=== PATIENT | female | born 1945 | race Caucasian/White ===

== ENCOUNTER 2018-05-31 07:13 | Inpatient (IN) ==
[2018-05-31] MEDS ORDERED: *HR* Succinylcholine 200 MG/10 ML VIAL IVP ONE (07:26)
[2018-05-31] MEDS ORDERED: *HR* Rocuronium Bromide 50 MG/5 ML VIAL ONE (07:26)
[2018-05-31] MEDS ORDERED: Dexamethasone 4 MG/ML VIAL ONE (07:26)
[2018-05-31] MEDS ORDERED: *HR* Midazolam HCl 2 MG/2 ML VIAL ONE (07:26)
[2018-05-31] MEDS ORDERED: Neostigmine Methylsulfate 3 MG/3 ML SYRINGE ONE (07:26)
[2018-05-31] MEDS ORDERED: Ondansetron 4 MG/2 ML VIAL ONE (07:26)
[2018-05-31] MEDS ORDERED: Lidocaine -MPF 2% 2 ML VIAL ONE (07:26)
[2018-05-31] MEDS ORDERED: *HR* FentaNYL (PF) 100 MCG/2 ML VIAL ONE (07:26)
[2018-05-31] MEDS ORDERED: *HR* Propofol 200 MG/20 ML VIAL IVP ONE (07:27)
--- NOTE | 2018-05-31 07:28 | Anesthesia Evaluation PreOp ---
Date of Encounter: 05/31/18 Time of Encounter: 08:21 - Past History Planned Operation: Robotic Right Lower Lobectomy Cardiac History: CA (2016), HTN, Hyperlipidemia, Cardiac Stent (stent x 2, on plavix---last taken 05/31/2018) Pulmonary History: Former smoker (quit 1992), COPD, DARIANA Dx (uses CPAP), Other (H/O lung CA S/P right middle lobectomy) DIRECTOR OF CONSULTING SERVICES History: CVA (diagnosed by scan) Other Medical History: Denies Any Significant HX Anesthesia History: No Prior Anesthetic Complications, Past Anesthesia Alcohol Use: rarely Drug use: none Medications and Allergies Allergy/AdvReac Type Severity Reaction Status Date / Time tetanus immune globulin Allergy See Verified 05/31/18 08:07 Comments Amoxicillin AdvReac Rash Verified 05/31/18 08:07 clavulanic acid AdvReac Vomiting Verified 05/31/18 08:07 [From Augmentin] codeine AdvReac Itching Verified 05/31/18 08:07 Sulfa (Sulfonamide AdvReac Rash Verified 05/31/18 08:07 Antibiotics) - Meds/Allergy Pre-op Review Medications Reviewed: Yes Allergies Reviewed: Yes Beta Blockers on Current Med List: Yes If Beta Blockers taken, Date/Time (Last Dose taken): 05/31/2018 at 0500 Anesthesia Results - Labs Laboratory Tests 05/15/18 05/15/18 08:03 08:03 WBC 6.4 Hgb 13.6 Hct 40.5 Plt Count 222 Sodium 129 L Potassium 4.4 BUN 16 Creatinine 0.86 - Imaging EKG: report reviewed (05/15/2018 SINUS BRADYCARDIA) Anesthesia Exam O2 Sat Height 1.6 m Height 1.6 m Weight 67.585 kg Weight 67.585 kg O2 Sat by Pulse Oximetry 98 Vital Signs Temp Pulse Resp BP Pulse Ox 98.4 F 65 18 128/65 98 05/31/18 07:56 05/31/18 07:56 05/31/18 07:56 05/31/18 07:56 05/31/18 07:56 Height: 5'3'' Weight: 149 lbs NPO (# of Hours): 8 Pain Scale: 0 Pain Scale Used: Numeric (1 - 10) - HEENT Pupil (Motor): EOMI Mallampati: II Teeth: Normal (loose lower front tooth) Oral Opening: Greater than 3 - DIRECTOR OF CONSULTING SERVICES LOC: Oriented DIRECTOR OF CONSULTING SERVICES Motor: Normal RUE, Normal LUE, Normal RLE, Normal LLE, Normal Face DIRECTOR OF CONSULTING SERVICES Sensory: Normal: RUE, LUE, Face, Deficit: RLE (neuropathy), LLE (neuropathy) - Cardiac Rhythm: Regular Murmur: None - Pulmonary Breath Sounds: bilateral Clear Respiratory Effort: Symmetrical Anesthesia Assess/Plan ASA Score: 3 Level of consciousness: Cooperative, Oriented, Tranquil Anesthetic Plan: General Monitoring Plan: Standard Monitors Recovery Plan: PACU
[2018-05-31] MEDS ORDERED: Lidocaine -MPF 4% 5 ML AMPUL ONE (07:33)
[2018-05-31] MEDS ORDERED: CeFAZolin Syr 2,000MG/20 ML 2,000 MG/20 ML SYRINGE IVPB ONE (08:08)
[2018-05-31] MEDS ORDERED: Ringers Solution, Lactated 1,000 ML IVC SCH (08:15)
--- NOTE | 2018-05-31 08:27 | History & Physical Report ---
Date of Encounter: 05/31/18 Time of Encounter: 08:26 24 Hour HP Update - Instructions Instructions: If the History and Physical is less than 30 days old and was completed prior to A.M. admission and or procedure and has NOT been updated on calendar day of procedure please complete this update prior to performing procedure. - Update Patient reports changes in Medical Condition: No Changes in examination, assessment, or condition: No Changes in Medication: No Preop tests/diagnostics Reviewed: Yes Pre-Op MRSA Screen: Negative Surgery Remains Indicated: Yes - Pre-Operative Checklist Preoperative Checklist Indicated: Yes Prophylactic Antibiotic Ordered: Yes Home Medications Include Beta Garima: No Beta Garima Taken Today (Day of Surgery): No Beta Garima Taken Yesterday (Day Prior to Surgery): No Is VTE Prophylaxis Indicated?: Yes
[2018-05-31] MEDS ORDERED: Ondansetron 4 MG/2 ML VIAL IVP ONE (08:39)
[2018-05-31] MEDS ORDERED: *HR* HYDROmorphone (PF) 1 MG/ML SYRINGE IVP PRN (08:39)
[2018-05-31] MEDS ORDERED: *HR* OxyCODONE Immed Rel 5 MG TABLET PO PRN (08:39)
[2018-05-31] MEDS ORDERED: EPHEDrine 50 MG/ML VIAL ONE (10:48)
[2018-05-31] MEDS ORDERED: *HR* PHENYLEPHRINE 1,000 MCG/10 ML SYRINGE IVP ONE (10:53)
[2018-05-31] MEDS ORDERED: 0.9 % Sodium Chloride 1,000 ML IVC SCH (12:00)
--- NOTE | 2018-05-31 12:11 | Operative Note ---
Date of procedure: 05/31/18 Pre-op diagnosis: right lower lobe lung cancer Post-op diagnosis: same Procedure: staging bronchoscopy, right robotic decortication, lower lobectomy, lymph node dissection Anesthesia: GETA Local Anesthetics: 0.5% Sensorcaine HCL SubQ (cc) Surgeon: Ryan Ayala Was there an accounts payable assistant present: No Estimated blood loss (cc): 25 Specimen: wedge upper lobe, node 7, lower lobe Condition: stable Disposition: PACU Procedure in Detail: The patient was brought to the operating room and placed on the operating table in the supine position. After undergoing general anesthesia with Dulce compressive devices on bilateral lower extremities and perioperative antibiotics on board staging bronchoscopy was performed on the patient for the first time for this new enlarging PET positive right lower lobe lung mass with a history of right middle lobectomy performed by myself for non-small cell lung. Copious secretions were aspirated from the tracheobronchial tree until clear and then the mucosa appeared pink no endobronchial metastasis were appreciated, and no change in surgery indicated. Patient was placed on the operating room table in the left lateral decubitus position with care to pad all pressure points, prepped and draped in the usual sterile fashion. Thoracoscopy ports are placed. The da Josy robot was docked. A decortication of the upper lobe and lower lobe performed for approximately 45 minutes due to the previous lung cancer surgery. The nose were identified at station 7 mediastinal lymph nodes were removed during the previous middle lobectomy. The vein was divided and then artery vein bronchus and fissure completed with the endothoracic staplers. Paravertebral nerve blocks performed. A 28-Slov[place] chest tube placed through the most anterior thoracoscopy incision and secured into place with Ethibond suture. The da Josy robot was docked the docked and the remaining incisions closed with #1 Vicryl 0 Vicryl and 4-0 Monocryl subcuticular stitches with dressings consisting of Steri-Strips and sterile gauze intraoperative frozen section of mass demonstrated non-small cell lung cancer. Patient was extubated and taken to the recovery room.
[2018-05-31] MEDS ORDERED: 0.9 % Sodium Chloride 500 ML ONE (12:23)
[2018-05-31] MEDS ORDERED: Tranexamic Acid 1,000 MG/10 ML VIAL ONE (13:31)
--- NOTE | 2018-05-31 14:42 | Anesthesia Evaluation Post Op ---
Date of Encounter: 05/31/18 Time of Encounter: 14:40 - Vital Signs Vital Signs: vss - Lungs Lungs: Clear Ascult./Percussion - Airway Airway: Non-obstructed - Cardiovascular Regular Rate, Baseline Rhythm - Mental Status Mental Status: Alert & Oriented, Answers Appropriately - Pain Pain Scale: 7 (patient states pain isnt as bad if she doesnt move much) Pain Scale used: Numeric (1 - 10) - Nausea Vomiting Nausea Vomiting: Not Present - Hydration Hydration: Tolerates oral liquids
[2018-05-31] MEDS ORDERED: OXYCODONE Oral CONC 10 MG/0.5 ML ORAL.SYG SL PRN (15:07)
[2018-05-31] MEDS ORDERED: Ondansetron 4 MG/2 ML VIAL IVP PRN (15:07)
[2018-05-31] MEDS ORDERED: Ipratropium/Albuterol Neb 3 ML ONE (15:39)
[2018-05-31] MEDS: Ipratropium/Albuterol Neb 3 ML IH SCH ×3 (15:51→23:27)
[2018-05-31] MEDS: Gabapentin 300 MG CAPSULE PO SCH ×2 (16:01→20:23)
[2018-05-31] MEDS: 0.9 % Sodium Chloride 1,000 ML IVC SCH (16:02)
[2018-05-31] MEDS: *HR* HYDROcodone/Acet 5/325 mg TABLET PO PRN (16:02)
[2018-05-31] MEDS ORDERED: Ketorolac 15 MG/ML VIAL IM SCH (18:00)
[2018-05-31] MEDS: Ketorolac 15 MG/ML VIAL IVP SCH (23:56)
[2018-06-01] MEDS: Ipratropium/Albuterol Neb 3 ML IH SCH ×3 (04:24→11:09)
[2018-06-01] MEDS: 0.9 % Sodium Chloride 1,000 ML IVC SCH (04:38)
[2018-06-01 04:56] LABS: Hematocrit 26.1 % (35.3-44.9); Hemoglobin 8.4 g/dL (11.5-15.4); Mean Corpuscular HGB Conc 32.2 g/dL (31.6-35.5); Mean Corpuscular Hemoglobin 30.3 pg (28.0-33.3); Mean Corpuscular Volume 94.2 fL (83.0-100.0); Mean Platelet Volume 10.1 fL (9.4-12.4); Platelet Count 163 K/mcL (140-400); Red Blood Count 2.77 M/mcL (3.82-4.97); Red Cell Distribution Width 13.4 % (11.5-14.5)
[2018-06-01 05:16] LABS: BUN/Creatinine Ratio 23 (6-26); Blood Urea Nitrogen 19 mg/dL (8-23); Calcium 8.2 mg/dL (8.6-10.3); Carbon Dioxide 23 mEq/L (23-29); Chloride 104 mEq/L (98-107); Glucose 124 mg/dL (70-105); Magnesium 1.9 mg/dL (1.6-2.6); Osmolality,Calculated 282 (280-300); Potassium 4.7 mEq/L (3.5-5.1); Sodium 134 mEq/L (136-145); eGFR For Non-African Americans > 60 (> 60)
[2018-06-01] MEDS: Ketorolac 15 MG/ML VIAL IVP SCH ×4 (06:11→23:48)
[2018-06-01] MEDS: Loratadine 10 MG TABLET PO SCH (07:44)
[2018-06-01] MEDS: Gabapentin 300 MG CAPSULE PO SCH ×3 (07:44→21:16)
[2018-06-01] MEDS: Famotidine 20 MG TABLET PO SCH (07:45)
[2018-06-01] MEDS: Metoprolol XL (24 HR) Succ 25 MG TAB.ER.24H PO SCH (07:45)
[2018-06-01] MEDS: *HR* HYDROcodone/Acet 5/325 mg TABLET PO PRN (07:45)
[2018-06-01] MEDS: Aspirin Enteric Coated 81 MG Tablet PO SCH (07:46)
[2018-06-01] MEDS ORDERED: Levalbuterol Neb 1.25 MG/3 ML ONE (11:28)
[2018-06-01] MEDS: Levalbuterol Neb 1.25 MG/3 ML IH SCH ×2 (11:34→16:45)
--- NOTE | 2018-06-01 13:03 | Cardiothoracic Progress Note ---
Date of Encounter: 06/01/18 Time of Encounter: 13:01 - Assessment and plan (1) Cancer of bronchus of right lower lobe Current Visit: Yes Status: Acute The assessment and plan as outlined above was discussed with the patient and/or family members who expressed understanding and agreement. All questions were answered. continue chest tube to suction (2) CAD (coronary artery disease), unga coronary artery Current Visit: Yes Status: Acute The assessment and plan as outlined above was discussed with the patient and/or family members who expressed understanding and agreement. All questions were answered. continue current care. Qualifiers: [place] vs. transplanted heart: unga heart Associated angina: without angina Qualified Code(s): I25.10 - Atherosclerotic heart disease of unga coronary artery without angina pectoris - Subjective Interval history: feels better today than after 2 weeks from her 1st cancer operation. reviewed surgery Vital Signs, Last 4 Hours Temp Pulse Resp BP Pulse Ox 06/01/18 11:34 16 90 06/01/18 11:19 97.7 F 61 18 120/43 Oxgyen Flow Rate Oxygen Flow Rate (LPM) 2 Clinical Data, last 8 Hours Output, Chest Tube Drainage 70 Amount [Right Lateral Chest #1 ] Output, Chest Tube Drainage 30 Amount [Right Lateral Chest #1 ] Weight 05/30/18 05/31/18 06/01/18 23:59 23:59 23:59 Weight 67.585 kg 77.7 kg - Physical Examination General: Conversant, No Apparent Distress, Well developed, Well nourished HEENT: Atraumatic, Normocephaly, Trachea midline Cardiac: Reg Rate and Rhythm, Normal S1 and S2, No Murmur Incision: No signs of infection, Dry/intact dressing Chest tubes: Minimal drainage Lungs: Normal Breath Sounds Neuro: Alert and responsive, No focal deficits noted Vascular: Normal capillary refill - Labs 06/01/18 04:17 06/01/18 04:17 Lab Results, Last 24 hours 06/01/18 06/01/18 04:17 04:17 WBC 9.9 Hgb 8.4 L Hct 26.1 L Plt Count 163 Sodium 134 L Potassium 4.7 Chloride 104 Carbon Dioxide 23 BUN 19 Creatinine 0.83 Glucose 124 H Calcium 8.2 L Magnesium 1.9 - Imaging Chest Xray: image reviewed Consult Discharge Plan - Plan Additional Instructions: Please go to Out Patient testing on June 25, 2018 around 0730 AM to get an x-ray done before you go see Dr. Ayala. The office is sending the order over to out patient testing at the main hospital. Referrals: Duy Andersen MD [Primary Care Provider] - 06/12/18 10:20 am (Please fax records upon discharge) Ryan Ayala MD [Partnered Physician] - 06/25/18 8:30 am
[2018-06-02 05:50] LABS: Hematocrit 24.1 % (35.3-44.9); Hemoglobin 8.2 g/dL (11.5-15.4); Mean Corpuscular Hemoglobin 30.9 pg (28.0-33.3); Mean Corpuscular Volume 90.9 fL (83.0-100.0); Mean Platelet Volume 10.2 fL (9.4-12.4); Platelet Count 147 K/mcL (140-400); Red Blood Count 2.65 M/mcL (3.82-4.97); Red Cell Distribution Width 13.7 % (11.5-14.5)
[2018-06-02] MEDS: Ketorolac 15 MG/ML VIAL IVP SCH ×4 (05:59→23:24)
[2018-06-02] MEDS: Famotidine 20 MG TABLET PO SCH (07:48)
[2018-06-02] MEDS: Aspirin Enteric Coated 81 MG Tablet PO SCH (07:49)
[2018-06-02] MEDS: Gabapentin 300 MG CAPSULE PO SCH ×3 (07:49→19:55)
[2018-06-02] MEDS: Loratadine 10 MG TABLET PO SCH (07:49)
[2018-06-02] MEDS: Metoprolol XL (24 HR) Succ 25 MG TAB.ER.24H PO SCH (07:49)
--- NOTE | 2018-06-02 09:26 | Cardiothoracic Progress Note ---
Date of Encounter: 06/02/18 Time of Encounter: 09:24 - Assessment and plan (1) Cancer of bronchus of right lower lobe Current Visit: Yes Status: Acute The assessment and plan as outlined above was discussed with the patient and/or family members who expressed understanding and agreement. All questions were answered. I placed the chest tube to waterseal. We will check a chest x-ray tomorrow morning. If this looks good, we can discontinue the chest tube and discharge the patient. - Subjective Interval history: The patient is tolerating her diet and is anxious to go home. Vital Signs, Last 4 Hours Temp Pulse Resp BP Pulse Ox 06/02/18 07:58 98.3 F 71 18 117/58 95 06/02/18 07:57 70 Oxgyen Flow Rate Oxygen Flow Rate (LPM) 0 Clinical Data, last 8 Hours Output, Chest Tube Drainage 120 Amount [Right Lateral Chest #1 ] Output, Chest Tube Drainage 80 Amount [Right Lateral Chest #1 ] Output, Urine Amount 500 Weight 05/31/18 06/01/18 06/02/18 23:59 23:59 23:59 Weight 67.585 kg 77.7 kg Lungs are clear to percussion and auscultation. Heart is in a regular rate and rhythm. The chest tube has minimal drainage and no air leak. - Labs 06/02/18 05:20 06/01/18 04:17 Lab Results, Last 24 hours 06/02/18 05:20 WBC 8.7 Hgb 8.2 L Hct 24.1 L Plt Count 147 Consult Discharge Plan - Plan Additional Instructions: Please go to Out Patient testing on June 25, 2018 around 0730 AM to get an x-ray done before you go see Dr. Ayala. The office is sending the order over to out patient testing at the [facility]. Referrals: Duy Andersen MD [Primary Care Provider] - 06/12/18 10:20 am (Please fax records upon discharge) Ryan Ayala MD [Partnered Physician] - 06/25/18 8:30 am
[2018-06-03] MEDS: *HR* HYDROcodone/Acet 5/325 mg TABLET PO PRN (04:00)
[2018-06-03] MEDS: Ketorolac 15 MG/ML VIAL IVP SCH (06:32)
[2018-06-03] MEDS: Loratadine 10 MG TABLET PO SCH (07:25)
[2018-06-03] MEDS: Famotidine 20 MG TABLET PO SCH (07:26)
[2018-06-03] MEDS: Aspirin Enteric Coated 81 MG Tablet PO SCH (07:26)
[2018-06-03] MEDS: Metoprolol XL (24 HR) Succ 25 MG TAB.ER.24H PO SCH (07:26)
[2018-06-03] MEDS: Gabapentin 300 MG CAPSULE PO SCH (07:26)
[2018-06-03 07:50] VITALS: BP 129/58
--- NOTE | 2018-06-03 09:09 | Discharge Summary ---
Orders not resulted at time of discharge: Pending orders 05/15/18 09:16 Red Blood Cells [BBK] Routine 05/31/18 11:35 Surgical Pathology [PTH] Routine 05/31/18 11:48 Surgical Pathology [PTH] Routine Date of Encounter: 06/03/18 Time of Encounter: 09:03 - Discharge Diagnosis (1) Cancer of bronchus of right lower lobe Priority: Primary Status: Acute - Hospital Course Hospital course: Ms. Suero is a 73 year old female The patient is a 73-year-old female who is had previous lung cancer surgery. She presented with a new right lower lobe lung cancer. On 05/31/2018, Dr. Ayala took the patient to the operating room for staging bronchoscopy, right robotic decortication, right lower lobectomy and lymph node dissection. The patient tolerated this procedure well. On June 02, the chest tube was placed to waterseal. On June 03 the chest tube was removed. After this, a chest x- ray revealed a trace right apical pneumothorax that was improved. She also had some air beneath her right hemidiaphragm that was improving and was present since surgery. She was tolerating her diet well and had no abdominal symptoms. At the time of discharge, she was afebrile. Lungs were clear to percussion and auscultation. Heart was in a normal sinus rhythm. All incisions were healing well without signs of infection. Discharge medications are on the med rec in include Neurontin and narcotics for pain. I did check the [place] automated Rx reporting system. She was postoperative and was given a one-week supply of narcotics. Appropriate precautions were given. She was to return to her previous a regular diet. She was to walk as much as possible, but to avoid heavy lifting for a total of 3 months after surgery. She was to avoid driving for 1 month. She was to follow up and see Dr. Ayala in the office as directed and to follow-up with her primary care doctor as directed. She was to call sooner for any difficulties. - Time Spent with Patient Total time spent providing and/or coordinating discharge services: - Discharge Medications Prescriptions: New HYDROcodone/Acet 5/325 mg [Western 5-325 mg] 1 tab PO Q4HR PRN 7 Days #20 tablet PRN Reason: MODERATE PAIN Gabapentin [Neurontin] 300 mg PO TID 10 Days #30 capsule Continue Triamcinolone Acet 0.1% CRM [Kenalog] 1 appl TP BID PRN PRN Reason: Skin Irritation Nitroglycerin [Nitrostat] 0.4 mg SL AD PRN MDD [id number] call 911 PRN Reason: Chest Pain DiphenhydraMINE [Benadryl] 50 mg PO HS Aspirin [Lo-Dose Aspirin EC] 81 mg PO DAILY Clopidogrel [Plavix] 75 mg PO DAILY Calcium Citrate/Vitamin D2 [Daryl-Citrate Plus Vitamin D Tab] 1 each PO DAILY Loratadine [Claritin] 10 mg PO DAILY Nutrimost Hydramolecular 1 each PO DAILY Metoprolol XL (24 HR) Succ [Toprol Xl] 12.5 mg PO DAILY Home Medications: Aspirin [Lo-Dose Aspirin EC] 81 mg PO DAILY 05/31/18 [History] Calcium Citrate/Vitamin D2 [Daryl-Citrate Plus Vitamin D Tab] 1 each PO DAILY 05/31/18 [History] Clopidogrel [Plavix] 75 mg PO DAILY 05/31/18 [History] DiphenhydraMINE [Benadryl] 50 mg PO HS 05/31/18 [History] Loratadine [Claritin] 10 mg PO DAILY 05/31/18 [History] Metoprolol XL (24 HR) Succ [Toprol Xl] 12.5 mg PO DAILY 05/31/18 [History] Nitroglycerin [Nitrostat] 0.4 mg SL AD PRN MDD [id number] call 911 05/31/18 [History] Nutrimost Hydramolecular 1 each PO DAILY 05/31/18 [History] Triamcinolone Acet 0.1% CRM [Kenalog] 1 appl TP BID PRN 05/31/18 [History] Gabapentin [Neurontin] 300 mg PO TID 10 Days #30 capsule 06/03/18 [Rx] HYDROcodone/Acet 5/325 mg [Western 5-325 mg] 1 tab PO Q4HR PRN 7 Days #20 tablet 06/03/18 [Rx] Allergies/Adverse Reactions: Allergy/AdvReac Type Severity Reaction Status Date / Time tetanus immune globulin Allergy See Verified 05/31/18 17:00 Comments Amoxicillin AdvReac Rash Verified 05/31/18 17:00 clavulanic acid AdvReac Vomiting Verified 05/31/18 17:00 [From Augmentin] codeine AdvReac Itching Verified 05/31/18 17:00 Sulfa (Sulfonamide AdvReac Rash Verified 05/31/18 17:00 Antibiotics) Date of admission: 05/31/18 15:03 Primary care physician: Duy Andersen MD Procedure(s) Performed: 05/31/2018. Staging bronchoscopy, right robotic lung decortication, right lower lobectomy and right lymph node dissection. Discharging clinician: Gabriel Bernstein Anticipated date of discharge: 06/03/18 Physical Examination Vital Signs, Last 4 Hours Temp Pulse Resp BP Pulse Ox 06/03/18 07:48 98.2 F 62 18 129/58 96 06/03/18 07:36 64 - Patient Status Disposition: Home, Self-Care Condition: Fair Functional capacity at discharge: independent ambulation Overall status at discharge: patient is progressing back to baseline - Discharge Instructions Follow Up With: Duy Andersen MD [Primary Care Provider] - 06/12/18 10:20 am (Please fax records upon discharge) Ryan Ayala MD [Partnered Physician] - 06/25/18 8:30 am
== END 2018-06-03 11:29 | disposition home or self-care (01) | DRG 164 ==
LOC: SAMDAY 07:13 → 2NNU 15:03
PROVIDERS: ADMIT Thoracic Surgery (Cardiothoracic Vascular Surgery); ATTEND Thoracic Surgery (Cardiothoracic Vascular Surgery)